=== PATIENT | female | born 1975 | race American Indian/Alaskan Native ===

== ENCOUNTER 2019-07-15 17:35 | Emergency (ER) | payer OTHER ==
[~2019-07-15] VITALS: Ht 162.6 cm; Wt 100.0 kg
[~2019-07-15 17:35] MED LIST: AZIT250T PO; LIDOcaine 1% 30ml preserv. free vial ONE; NO HOME MEDS; ONDA8TAB6 PO
[2019-07-15 18:05] VITALS: BP 135/89
[2019-07-15] MEDS ORDERED: cyclobenzaprine 10mg tablet PO ONE (19:55)
== END 2019-07-15 20:05 | disposition home or self-care (01) ==
LOC: ER 17:35
DX: S29.012A Strain of muscle and tendon of back wall of thorax, initial encounter (principal); Z90.710 Acquired absence of both cervix and uterus; Z98.890 Other specified postprocedural states; X50.1XXA Overexertion from prolonged static or awkward postures, initial encounter; Y93.89 Activity, other specified; Y92.89 Other specified places as the place of occurrence of the external cause; Y99.9 Unspecified external cause status
CPT/HCPCS: 20552; 93005; 99284; J2001

== ENCOUNTER 2021-10-13 09:31 | Outpatient (CLI) | payer OTHER ==
[~2021-10-13 09:31] MED LIST changes: -LIDOcaine 1% 30ml preserv. free vial ONE
[2021-10-13 10:12] LABS: BASOPHILS # (AUTO) 0.1 X10'3 (0-0.2); EOSINOPHILS # (AUTO) 0.2 X10'3 (0-0.9); EOSINOPHILS % (AUTO) 2.9 % (0-6); HEMATOCRIT 38.2 % (35.0-45.0); HEMOGLOBIN 12.7 g/dl (12.0-16.0); LYMPHOCYTES # (AUTO) 1.8 X10'3 (1.1-4.8); LYMPHOCYTES % (AUTO) 31.8 % (21-51); MEAN CORPUSCULAR HGB CONC 33.3 g/dL (33.0-36.5); MEAN CORPUSCULAR VOLUME 87.2 FL (78-98); MEAN PLATELET VOLUME 9.5 FL (7.4-10.4); MONOCYTES # (AUTO) 0.6 X10'3 (0-0.9); NEUTROPHILS # (AUTO) 3.1 X10'3 (1.8-7.7); NEUTROPHILS % (AUTO) 54.3 % (42-75); PLATELET COUNT 224 X10'3 (140-440); RED BLOOD COUNT 4.38 X10'6 (4.20-5.60); RED CELL DISTRIBUTION WIDTH 12.5 % (11.5-14.5); WHITE BLOOD COUNT 5.7 X10'3 (4.5-11.0)
[2021-10-13 10:31] LABS: CLARITY,URINE CLEAR (Clear); COLOR,URINE YELLOW (Yellow); GLUCOSE, URINE NEGATIVE (Neg); KETONES,URINE NEGATIVE (Neg); LEUKOCYTE ESTERASE ,URINE NEGATIVE (Neg); NITRITES, URINE NEGATIVE (Neg); OCCULT BLOOD,URINE NEGATIVE (Neg); PROTEIN,URINE NEGATIVE (Neg); UROBILINOGEN,URINE 0.2 E.U/dL (0.2-1.0)
[2021-10-13 10:37] LABS: UA COLLECTION TYPE NON-SPECIFIED
[2021-10-13 10:38] LABS: ALANINE AMINOTRANSFERASE 31 U/L (12-78); ALBUMIN 3.5 G/DL (3.4-5.0); ALBUMIN/GLOBULIN RATIO 1.2 (1.1-1.5); ALKALINE PHOSPHATASE 79 IU/L (46-116); ANION GAP 11 (8-16); ASPARTATE AMINO TRANSFERASE 16 U/L (10-37); BILIRUBIN,TOTAL 0.4 MG/DL (0.1-1.0); BLOOD UREA NITROGEN 21 MG/DL (7-18); BUN/CREATININE RATIO 31.3 (6.6-38.0); CALCIUM 8.3 MG/DL (8.5-10.1); CHLORIDE 105 MMOL/L (99-107); CHOL/HDL RATIO 3.8 (0.00-4.99); CHOLESTEROL 206 MG/DL (0-200); CREATININE 0.67 MG/DL (0.40-0.90); GLUCOSE 87 MG/DL (70-104); HDL CHOLESTEROL 54 MG/DL (35-60); LDL CHOLESTEROL 124 MG/DL (50-100); SODIUM 140 MMOL/L (135-145); TOTAL PROTEIN 6.5 G/DL (6.4-8.2); TRIGLYCERIDES 97 MG/DL (20-135); eGFR > 90 ML/MIN
== END 2021-10-13 23:59 | disposition home or self-care (01) ==
LOC: LAB SPEC 09:31
PROVIDERS: ATTEND Internal Medicine
DX: E89.0 Postprocedural hypothyroidism (principal); E83.51 Hypocalcemia; I89.0 Lymphedema, not elsewhere classified; E78.00 Pure hypercholesterolemia, unspecified; R53.82 Chronic fatigue, unspecified; L65.9 Nonscarring hair loss, unspecified; M19.141 Post-traumatic osteoarthritis, right hand; M19.142 Post-traumatic osteoarthritis, left hand; R45.86 Emotional lability
CPT/HCPCS: 36415; 80053; 80061; 81003; 82306; 82607; 82746; 84439; 84443; 85025; 85651

== ENCOUNTER 2022-09-16 08:04 | Outpatient (CLI) | payer BC | END 2022-09-16 23:59 | disposition home or self-care (01) | LOC: CARD DIAG 08:04 | PROVIDERS: ATTEND Family Medicine | DX: I34.81 Nonrheumatic mitral (valve) annulus calcification (principal); I47.1 Supraventricular tachycardia | CPT/HCPCS: 93306 ==

== ENCOUNTER 2022-11-10 00:37 | Inpatient (IN) | payer BC ==
[~2022-11-10] VITALS: Ht 162.6 cm; Wt 77.8 kg
[2022-11-10] MEDS ORDERED: ketorolac trometh. 30mg/ml inj. IV ONE (01:15)
[2022-11-10] MEDS ORDERED: fentaNYL/PF 50MCG/1 ML 2ML syringe IV ONE (01:15)
[2022-11-10] MEDS ORDERED: normal saline 1000ml 1,000 ML IV ONE ×3 (01:15→04:55)
[2022-11-10] MEDS ORDERED: ondansetron/PF 4mg/2ml inj IV ONE (01:15)
--- NOTE | 2022-11-10 01:36 | NUR ---
REC'D PT WITH AT BS, ON ALL MONITORS. 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 DENIES ANY DIFFICULTY WITH URINATION
[2022-11-10 01:39] LABS: APTT 24 SECONDS (22-32); BASOPHILS % (AUTO) 0.3 % (0-1); EOSINOPHILS % (AUTO) 0.4 % (0-6); HEMATOCRIT 39.3 % (35.0-45.0); HEMOGLOBIN 13.4 g/dl (12.0-16.0); LYMPHOCYTES # (AUTO) 0.4 X10'3 (1.1-4.8); LYMPHOCYTES % (AUTO) 9.4 % (21-51); MEAN CORPUSCULAR HEMOGLOBIN 30.4 PG (27.0-31.0); MEAN CORPUSCULAR HGB CONC 34.2 g/dL (33.0-36.5); MEAN PLATELET VOLUME 8.6 FL (7.4-10.4); MONOCYTES # (AUTO) 0.1 X10'3 (0-0.9); NEUTROPHILS # (AUTO) 3.3 X10'3 (1.8-7.7); NEUTROPHILS % (AUTO) 86.9 % (42-75); PLATELET COUNT 183 X10'3 (140-440); RED BLOOD COUNT 4.41 X10'6 (4.20-5.60); RED CELL DISTRIBUTION WIDTH 12.7 % (11.5-14.5); WHITE BLOOD COUNT 3.8 X10'3 (4.5-11.0)
[2022-11-10 01:42] LABS: ALANINE AMINOTRANSFERASE 41 U/L (12-78); ALBUMIN 3.5 G/DL (3.4-5.0); ALBUMIN/GLOBULIN RATIO 1.2 (1.1-1.5); ALKALINE PHOSPHATASE 78 IU/L (46-116); ANION GAP 10 (8-16); ASPARTATE AMINO TRANSFERASE 27 U/L (10-37); BILIRUBIN,TOTAL 0.5 MG/DL (0.1-1.0); BLOOD UREA NITROGEN 25 MG/DL (7-18); BUN/CREATININE RATIO 29.8 (10.0-20.0); CALCIUM 8.8 MG/DL (8.5-10.1); CHLORIDE 104 MMOL/L (99-107); CREATININE 0.84 MG/DL (0.40-0.90); GLUCOSE 117 MG/DL (70-104); POTASSIUM 4.2 MMOL/L (3.5-5.1); SODIUM 139 MMOL/L (135-145); TOTAL CARBON DIOXIDE 24.6 MMOL/L (24-32); TOTAL PROTEIN 6.5 G/DL (6.4-8.2); eGFR 72 ML/MIN
[2022-11-10 01:42] LABS: CLARITY,URINE CLEAR (Clear); COLOR,URINE YELLOW (Yellow); GLUCOSE, URINE NEGATIVE (Neg); KETONES,URINE NEGATIVE (Neg); LEUKOCYTE ESTERASE ,URINE NEGATIVE (Neg); NITRITES, URINE NEGATIVE (Neg); OCCULT BLOOD,URINE NEGATIVE (Neg); PROTEIN,URINE NEGATIVE (Neg); URINE HCG NEGATIVE (NEG); UROBILINOGEN,URINE 0.2 E.U/dL (0.2-1.0)
[2022-11-10 01:44] LABS: UA COLLECTION TYPE CLN CATCH MIDSTREAM
[2022-11-10 01:47] LABS: ETHANOL < 0.010 GM/DL (0.0-0.010)
[2022-11-10 02:19] LABS: URINE AMPHETAMINE SCREEN NEGATIVE (Neg); URINE BARBITUATE SCREEN NEGATIVE (Neg); URINE BENZODIAZEPINES SCREEN NEGATIVE (Neg); URINE CANNABINOID SCREEN NEGATIVE (Neg); URINE COCAINE SCREEN NEGATIVE (Neg); URINE METHADONE SCREEN NEGATIVE (Neg); URINE OPIATE SCREEN NEGATIVE (Neg); URINE PHENCYCLIDINE SCREEN NEGATIVE (Neg)
[2022-11-10] MEDS ORDERED: BISA-78 PO (03:41)
[2022-11-10] MEDS ORDERED: POLY119P2 PO (03:41)
--- NOTE | 2022-11-10 04:00 | NUR ---
DURING D/C OF PT, PT BECAME HYPOTENSIVE 88/56. PT ADDITIONALLY COMPLAINED OF DIAPHORESIS AND PALPITATIONS. STAT EKG OBTAINED. AWARE. PT NOW ON OBS
[2022-11-10] MEDS ORDERED: acetaminophen 325mg tablet PO ONE (04:55)
[2022-11-10] MEDS ORDERED: normal saline 1000ml 1,000 ML IV SCH (06:25)
[2022-11-10] MEDS ORDERED: potassium Cl 20 mEq SR tablet PO PRN ×2 (08:40)
[2022-11-10] MEDS ORDERED: magnesium 4gm in 100ml NS 100 ML IV PRN (08:40)
[2022-11-10] MEDS ORDERED: potassium Cl 40MEQ/1/2NS 520ml 520 ML IV PRN (08:40)
[2022-11-10] MEDS ORDERED: mag hydrox/Alum hydrox/simeth 30ml oral suspension PO PRN (08:40)
[2022-11-10] MEDS ORDERED: magnesium hydroxide 30ml (MOM) UD suspension PO PRN (08:40)
[2022-11-10] MEDS ORDERED: PERFLUTREN PROTEIN-A MICROSPHR (Optison) 0.22 MG/ML 3ML VIAL IV ONE (08:40)
[2022-11-10] MEDS ORDERED: magnesium 2GM in 50ml NS 50 ML IV PRN (08:40)
[2022-11-10] MEDS ORDERED: ondansetron/PF 4mg/2ml inj IV PRN (08:40)
[2022-11-10] MEDS: normal saline 1000ml 1,000 ML IV SCH ×3 (08:58→16:28)
--- NOTE | 2022-11-10 09:22 | NUR ---
FLOOR BED EXCHANGED FOR GURNEY PER PT REQUEST.
[2022-11-10 10:46] VITALS: BP 78/46
[2022-11-10] MEDS ORDERED: LEVO175T7 PO (13:37)
[2022-11-10] MEDS ORDERED: CALC0.5C8 PO (13:37)
--- NOTE | 2022-11-10 13:57 | NUR ---
PAGER ID: [phone] MESSAGE: Deuce [id number], Pt's last BP was 97/60 up from 78/50. Pt was up and walking, she feels tired. Her medrec doesn't show her Synthroid or Calcitrol. Manjinder [id number]
[2022-11-10] MEDS ORDERED: CALC600T61 PO (14:39)
[2022-11-10] MEDS ORDERED: CHOL100025 PO (14:39)
[2022-11-10] MEDS ORDERED: CALC600T22 PO ×2 (14:39→14:48)
[2022-11-10] MEDS: acetaminophen 325mg tablet PO PRN ×2 (14:53→21:20)
[2022-11-10 15:00] VITALS: BP 91/53
--- NOTE | 2022-11-10 15:33 | NUR ---
PAGER ID: [phone] MESSAGE: Deuce [id number], Pt's BP is at 91/53 and is asking if she cannot be NPO. She had a small amount of bright red blood in the toilet now, less than she had yesterday. Do you want her to eat and drink? Manjinder [id number]
[2022-11-10 18:00] VITALS: BP 90/63
[2022-11-10] MEDS: K and/or MAG REPLACEMENT MC SCH (19:19)
[2022-11-10] MEDS: docusate sod 100mg capsule PO SCH (19:19)
[2022-11-10] MEDS ORDERED: enoxaparin 40mg/0.4ml syringe SQ SCH (20:00)
[2022-11-10] MEDS: cholecalciferol (vitamin D3) 1,000 unit (25mcg) tablet PO SCH (21:17)
[2022-11-10] MEDS: calcium carbonate 500mg tablet PO SCH (21:17)
[2022-11-10 23:23] VITALS: BP 96/62
[2022-11-11] MEDS: normal saline 1000ml 1,000 ML IV SCH (02:34)
[2022-11-11 03:05] VITALS: BP 97/55
[2022-11-11] MEDS: calcium carbonate 500mg tablet PO SCH ×2 (05:29→20:18)
[2022-11-11] MEDS: levoTHYROXINE 175mcg tablet PO SCH (05:32)
[2022-11-11] MEDS: calcitriol 0.25mcg capsule PO SCH (05:32)
[2022-11-11] MEDS: acetaminophen 325mg tablet PO PRN ×2 (05:34→17:36)
[2022-11-11 06:00] VITALS: BP 114/79
[2022-11-11] MEDS ORDERED: calcium carbonate 500mg tablet PO SCH ×2 (06:00→12:00)
[2022-11-11 06:13] LABS: BASOPHILS % (AUTO) 0.4 % (0-1); EOSINOPHILS # (AUTO) 0.1 X10'3 (0-0.9); EOSINOPHILS % (AUTO) 0.7 % (0-6); HEMATOCRIT 32.9 % (35.0-45.0); LYMPHOCYTES # (AUTO) 1.2 X10'3 (1.1-4.8); LYMPHOCYTES % (AUTO) 15.2 % (21-51); MEAN CORPUSCULAR HEMOGLOBIN 30.3 PG (27.0-31.0); MEAN CORPUSCULAR HGB CONC 33.5 g/dL (33.0-36.5); MEAN CORPUSCULAR VOLUME 90.3 FL (78-98); MEAN PLATELET VOLUME 8.6 FL (7.4-10.4); MONOCYTES # (AUTO) 0.7 X10'3 (0-0.9); MONOCYTES % (AUTO) 9.3 % (2-12); NEUTROPHILS # (AUTO) 5.7 X10'3 (1.8-7.7); NEUTROPHILS % (AUTO) 74.4 % (42-75); PLATELET COUNT 155 X10'3 (140-440); RED BLOOD COUNT 3.65 X10'6 (4.20-5.60); RED CELL DISTRIBUTION WIDTH 13.2 % (11.5-14.5); WHITE BLOOD COUNT 7.6 X10'3 (4.5-11.0)
[2022-11-11 06:39] LABS: ALANINE AMINOTRANSFERASE 77 U/L (12-78); ALBUMIN 2.6 G/DL (3.4-5.0); ALKALINE PHOSPHATASE 56 IU/L (46-116); ANION GAP 9 (8-16); ASPARTATE AMINO TRANSFERASE 54 U/L (10-37); BILIRUBIN,TOTAL 0.3 MG/DL (0.1-1.0); BLOOD UREA NITROGEN 11 MG/DL (7-18); BUN/CREATININE RATIO 17.7 (10.0-20.0); CALCIUM 7.9 MG/DL (8.5-10.1); CHLORIDE 109 MMOL/L (99-107); CREATININE 0.62 MG/DL (0.40-0.90); GLUCOSE 89 MG/DL (70-104); MAGNESIUM 1.9 MG/DL (1.5-2.4); POTASSIUM 3.8 MMOL/L (3.5-5.1); SODIUM 142 MMOL/L (135-145); TOTAL CARBON DIOXIDE 24.2 MMOL/L (24-32); TOTAL PROTEIN 5.2 G/DL (6.4-8.2); eGFR > 90 ML/MIN
--- NOTE | 2022-11-11 06:55 | NUR ---
Patient in room PCU 3024. I have received report from Antoine LOPEZ and had the opportunity to ask questions and assume patient care.
[2022-11-11] MEDS ORDERED: levoTHYROXINE 175mcg tablet PO SCH (07:00)
[2022-11-11] MEDS: docusate sod 100mg capsule PO SCH ×2 (07:37→19:31)
--- NOTE | 2022-11-11 07:47 | NUR ---
PAGER ID: [phone] MESSAGE: [id number]- Dana Tripathi: Pt noted with moderate amount of blood in stool this morning. C/o headache APAP not effective, requesting excedrin? Please call when you have a chance Ty Kenya [phone] Addendum: 11/11/22 at 1242 by Kenya Song LVN 0800- Received verbal order to discontinue fluids, new order noted for norco 5/325 once for headache. MD consulted with GI MD, new order order noted for shilpa. Noted and carried out Addendum: 11/11/22 at 1243 by Kenya Song LVN 929- Patient declined norco 5/325 at this time, she stated "It's not really bad right now, I can handle it for now, maybe I'll try it later."
[2022-11-11] MEDS ORDERED: PEG 3350/Na sulf,bicarb,Cl/KCl oral sol 4 liter bottle PO ONE (07:55)
[2022-11-11] MEDS ORDERED: HYDROcodone/acetaminophen 10/325mg tab PO ONE (07:55)
[2022-11-11] MEDS ORDERED: calcitriol 0.25mcg capsule PO SCH (08:00)
[2022-11-11] MEDS: K and/or MAG REPLACEMENT MC SCH ×2 (08:00→19:32)
[2022-11-11] MEDS ORDERED: HYDROcodone/acetaminophen 5mg/325mg tablet PO ONE (09:00)
[2022-11-11 10:00] VITALS: BP 116/81
[2022-11-11 15:00] VITALS: BP 117/81
--- NOTE | 2022-11-11 17:31 | NUR ---
DIGITAL MARKETING COORDINATOR documentation: I have reviewed and agree with all interventions, assessments performed and documented by ALEXIS ARELLANO LVN.
[2022-11-11 18:00] VITALS: BP 115/73
[2022-11-11] MEDS: cholecalciferol (vitamin D3) 1,000 unit (25mcg) tablet PO SCH (20:18)
[2022-11-11 22:56] VITALS: BP 98/59
[2022-11-12 02:20] VITALS: BP 97/66
[2022-11-12] MEDS: calcitriol 0.25mcg capsule PO SCH (05:44)
[2022-11-12] MEDS: levoTHYROXINE 175mcg tablet PO SCH (05:44)
[2022-11-12] MEDS: acetaminophen 325mg tablet PO PRN ×2 (05:45→14:01)
[2022-11-12] MEDS: calcium carbonate 500mg tablet PO SCH (05:46)
--- NOTE | 2022-11-12 06:26 | NUR ---
Patient in room PCU 3024. I have received report from mayito beasley and had the opportunity to ask questions and assume patient care.
[2022-11-12 06:36] LABS: ALANINE AMINOTRANSFERASE 67 U/L (12-78); ALBUMIN/GLOBULIN RATIO 1.1 (1.1-1.5); ALKALINE PHOSPHATASE 59 IU/L (46-116); ANION GAP 10 (8-16); ASPARTATE AMINO TRANSFERASE 29 U/L (10-37); BILIRUBIN,TOTAL 0.4 MG/DL (0.1-1.0); BLOOD UREA NITROGEN 5 MG/DL (7-18); BUN/CREATININE RATIO 8.1 (10.0-20.0); CHLORIDE 106 MMOL/L (99-107); CREATININE 0.62 MG/DL (0.40-0.90); GLUCOSE 83 MG/DL (70-104); MAGNESIUM 2.1 MG/DL (1.5-2.4); POTASSIUM 3.6 MMOL/L (3.5-5.1); SODIUM 142 MMOL/L (135-145); TOTAL CARBON DIOXIDE 26.3 MMOL/L (24-32); TOTAL PROTEIN 5.8 G/DL (6.4-8.2); eGFR > 90 ML/MIN
[2022-11-12 06:38] LABS: BASOPHILS % (AUTO) 0.8 % (0-1); EOSINOPHILS # (AUTO) 0.1 X10'3 (0-0.9); EOSINOPHILS % (AUTO) 1.6 % (0-6); HEMATOCRIT 35.8 % (35.0-45.0); HEMOGLOBIN 12.1 g/dl (12.0-16.0); LYMPHOCYTES % (AUTO) 25.2 % (21-51); MEAN CORPUSCULAR HEMOGLOBIN 30.3 PG (27.0-31.0); MEAN CORPUSCULAR HGB CONC 33.9 g/dL (33.0-36.5); MEAN CORPUSCULAR VOLUME 89.6 FL (78-98); MEAN PLATELET VOLUME 9.1 FL (7.4-10.4); MONOCYTES # (AUTO) 0.4 X10'3 (0-0.9); NEUTROPHILS # (AUTO) 2.5 X10'3 (1.8-7.7); NEUTROPHILS % (AUTO) 61.4 % (42-75); PLATELET COUNT 189 X10'3 (140-440); RED BLOOD COUNT 3.99 X10'6 (4.20-5.60); RED CELL DISTRIBUTION WIDTH 12.9 % (11.5-14.5); WHITE BLOOD COUNT 4.1 X10'3 (4.5-11.0)
[2022-11-12] MEDS: docusate sod 100mg capsule PO SCH (06:53)
[2022-11-12] MEDS: K and/or MAG REPLACEMENT MC SCH (07:00)
[2022-11-12 07:12] VITALS: BP 117/75
[2022-11-12 11:00] VITALS: BP 113/79
[2022-11-12] MEDS ORDERED: diazepam 5mg tablet PO ONE (13:35)
[2022-11-12] MEDS ORDERED: baclofen 10mg tablet PO PRN (13:35)
[2022-11-12 15:00] VITALS: BP 124/74
--- NOTE | 2022-11-12 17:20 | NUR ---
PAGER ID: [phone] MESSAGE: JOSEPH CORTÉS. PT DECIDED NOT TO WAIT FOR COLONOSCOPY. PT WILL BE DISCHARGED PER ORDER. JUNIE [id number]
--- NOTE | 2022-11-12 17:46 | NUR ---
PT DISCHARGED IN STABLE CONDITION. LEFT FACILITY IN PRIVATE VEHICLE WITH . IV DC CANULA INTACT. FOLLOW UP INSTRUCTIONS GIVEN, ALL QUESTIONS ANSWERED. PT WAS TO HAVE COLONOSCOPY THIS AFTERNOON, PT DIDNT FEEL SHE COULD WAIT ANY LONGER SHE HAS BEEN WAITING ALL DAY. GI LAB WAS WAITING ON MD. NOTIFIED DR YUEN. HE WAS AGREEABLE THAT PT WAS OK TO DC HOME AND FOLLOW UP WITH COLONOSCOPY OUTPT. PT STATES SHE WILL FOLLOW UP WITH PCP AND HE WILL SET IT UP FOR HER. Addendum: 11/12/22 at 1749 by Phyllis Dunbar RN Amended: Links added.
== END 2022-11-12 17:40 | disposition home or self-care (01) | DRG 315 ==
LOC: ER 00:37 → ED HOLD 08:53 → PCU 3S 10:15 → OBSVTOIN 14:07
PROVIDERS: ADMIT Family Medicine; ATTEND Family Medicine
DX: I95.9 Hypotension, unspecified (principal); I47.1 Supraventricular tachycardia; K92.1 Melena; E89.0 Postprocedural hypothyroidism; K59.00 Constipation, unspecified; Z80.7 Family history of other malignant neoplasms of lymphoid, hematopoietic and related tissues; Z83.3 Family history of diabetes mellitus; Z85.41 Personal history of malignant neoplasm of cervix uteri; Z85.850 Personal history of malignant neoplasm of thyroid; Z87.891 Personal history of nicotine dependence; Z90.710 Acquired absence of both cervix and uterus; Z79.899 Other long term (current) drug therapy
CPT/HCPCS: 36415; 71045; 74176; 80053; 80305; 80320; 81003; 81025; 83605; 83735; 84145; 84439; 84443; 85025; 85610; 85730; 86885; 86900; 86901; 87040; 87081; 93308; 99285; G0378; J1885; J2405; J3010; J7030

== ENCOUNTER 2023-12-30 14:10 | Emergency (ER) | payer BC ==
[~2023-12-30] VITALS: Ht 162.6 cm; Wt 79.1 kg
[~2023-12-30 14:10] MED LIST changes: -AZIT250T PO; +CALC0.5C8 PO; +CALC600T22 PO; +CHOL100025 PO; +LEVO175T7 PO; -NO HOME MEDS; -ONDA8TAB6 PO
[2023-12-30] MEDS: ondansetron/PF 4mg/2ml inj IV ONE (14:37)
[2023-12-30] MEDS: morphine 4 MG/ML inj SYRINge IV ONE ×2 (14:39→15:37)
[2023-12-30] MEDS: normal saline 1000ML IV soln IVB ONE ×2 (14:39→16:30)
[2023-12-30 14:52] LABS: EOSINOPHILS % (AUTO) 0.5 % (0-6); NEUTROPHILS # (AUTO) 4.5 X10'3 (1.8-7.7)
[2023-12-30 14:54] LABS: BASOPHILS % (AUTO) 0.6 % (0-1); HEMATOCRIT 42.9 % (35.0-45.0); HEMOGLOBIN 14.3 g/dl (12.0-16.0); LYMPHOCYTES # (AUTO) 1.4 X10'3 (1.1-4.8); LYMPHOCYTES % (AUTO) 21.8 % (21-51); MEAN CORPUSCULAR HEMOGLOBIN 29.9 PG (27.0-31.0); MEAN CORPUSCULAR HGB CONC 33.5 g/dL (33.0-36.5); MEAN CORPUSCULAR VOLUME 89.2 FL (78-98); MEAN PLATELET VOLUME 8.9 FL (7.4-10.4); MONOCYTES # (AUTO) 0.6 X10'3 (0-0.9); MONOCYTES % (AUTO) 9.5 % (2-12); NEUTROPHILS % (AUTO) 67.6 % (42-75); PLATELET COUNT 235 X10'3 (140-440); RED BLOOD COUNT 4.81 X10'6 (4.20-5.60); RED CELL DISTRIBUTION WIDTH 12.3 % (11.5-14.5); WHITE BLOOD COUNT 6.6 X10'3 (4.5-11.0)
[2023-12-30 15:02] LABS: ALANINE AMINOTRANSFERASE 29 U/L (12-78); ALBUMIN/GLOBULIN RATIO 1.2 (1.1-1.5); ALKALINE PHOSPHATASE 59 IU/L (46-116); ANION GAP 12 (8-16); ASPARTATE AMINO TRANSFERASE 13 U/L (10-37); BILIRUBIN,TOTAL 0.6 MG/DL (0.1-1.0); BLOOD UREA NITROGEN 20 MG/DL (7-18); BUN/CREATININE RATIO 25.3 (10.0-20.0); CALCIUM 9.3 MG/DL (8.5-10.1); CHLORIDE 102 MMOL/L (99-107); CREATININE 0.79 MG/DL (0.40-0.90); GLUCOSE 107 MG/DL (70-104); LIPASE 40 U/L (16-77); POTASSIUM 3.7 MMOL/L (3.5-5.1); SODIUM 138 MMOL/L (135-145); TOTAL CARBON DIOXIDE 24.4 MMOL/L (24-32); TOTAL PROTEIN 7.3 G/DL (6.4-8.2); eCRCL 74 ML/MIN; eGFR 77 ML/MIN
[2023-12-30] MEDS ORDERED: iohexol 300mg/ml 100ml inj. ONE (15:07)
[2023-12-30 16:34] LABS: BILIRUBIN,URINE NEGATIVE (Neg); CLARITY,URINE SLIGHTLY CLOUDY (Clear); COLOR,URINE YELLOW (Yellow); GLUCOSE, URINE NEGATIVE (Neg); KETONES,URINE 15 mg/dl (Neg); LEUKOCYTE ESTERASE ,URINE NEGATIVE (Neg); NITRITES, URINE NEGATIVE (Neg); OCCULT BLOOD,URINE NEGATIVE (Neg); PH,URINE 7.5 (4.8-8.0); PROTEIN,URINE NEGATIVE (Neg); UA COLLECTION TYPE CLN CATCH MIDSTREAM; UROBILINOGEN,URINE 0.2 E.U/dL (0.2-1.0)
[2023-12-30 16:41] LABS: AMORPHOUS URATES 2+; BACTERIA,URINE FEW /HPF (Neg); MUCUS STRANDS NONE SEEN /LPF (Neg); RBC,URINE NONE SEEN /HPF (0-2); SQUAMOUS EPITHELIAL CELL,UR FEW /LPF (FEW); WBC,URINE 0-4 /HPF (0-4)
[2023-12-30] MEDS: mag hydrox/Alum hydrox/simeth 30ml oral suspension PO ONE (16:49)
[2023-12-30 16:51] LABS: URINE HCG NEGATIVE (NEG)
[2023-12-30] MEDS: LORazepam 2 mg/ml vial IV ONE ×2 (17:52→19:13)
[2023-12-30] MEDS: dexamethasone sod phosphate 10mg/ml inj IV STA (17:53)
[2023-12-30] MEDS ORDERED: LORA-269 PO ×2 (19:08→19:09)
[2023-12-30 19:33] VITALS: BP 116/77; PULSE 76; RESP 23; TEMP 98.7; O2SAT 98
== END 2023-12-30 19:37 | disposition home or self-care (01) ==
LOC: ER 14:11
DX: R10.84 Generalized abdominal pain (principal); Z88.8 Allergy status to other drugs, medicaments and biological substances; Z79.899 Other long term (current) drug therapy; Z85.9 Personal history of malignant neoplasm, unspecified; Z90.710 Acquired absence of both cervix and uterus; Z98.890 Other specified postprocedural states
CPT/HCPCS: 36415; 74178; 80053; 81001; 81025; 83690; 85025; 93005; 96361; 96374; 96375; 96376; 99285; J1100; J2060; J2270; J2405; J7030; Q9967

== ENCOUNTER 2024-04-24 11:19 | Emergency (ER) | payer BC ==
[~2024-04-24] VITALS: Ht 162.6 cm; Wt 77.3 kg
[~2024-04-24 11:19] MED LIST changes: +LORA-269 PO
[2024-04-24 11:45] LABS: BASOPHILS % (AUTO) 0.7 % (0-1); EOSINOPHILS # (AUTO) 0.1 X10'3 (0-0.9); EOSINOPHILS % (AUTO) 1.1 % (0-6); HEMATOCRIT 40.3 % (35.0-45.0); HEMOGLOBIN 13.4 g/dl (12.0-16.0); LYMPHOCYTES # (AUTO) 1.9 X10'3 (1.1-4.8); LYMPHOCYTES % (AUTO) 34.6 % (21-51); MEAN CORPUSCULAR HGB CONC 33.2 g/dL (33.0-36.5); MEAN CORPUSCULAR VOLUME 90.4 FL (78-98); MEAN PLATELET VOLUME 8.7 FL (7.4-10.4); MONOCYTES # (AUTO) 0.6 X10'3 (0-0.9); MONOCYTES % (AUTO) 11.9 % (2-12); NEUTROPHILS # (AUTO) 2.8 X10'3 (1.8-7.7); NEUTROPHILS % (AUTO) 51.7 % (42-75); PLATELET COUNT 205 X10'3 (140-440); RED BLOOD COUNT 4.46 X10'6 (4.20-5.60); RED CELL DISTRIBUTION WIDTH 12.9 % (11.5-14.5); WHITE BLOOD COUNT 5.4 X10'3 (4.5-11.0)
[2024-04-24 12:00] LABS: ALANINE AMINOTRANSFERASE 19 U/L (12-78); ALBUMIN 3.4 G/DL (3.4-5.0); ALBUMIN/GLOBULIN RATIO 1.1 (1.1-1.5); ALKALINE PHOSPHATASE 65 IU/L (46-116); ANION GAP 8 (8-16); ASPARTATE AMINO TRANSFERASE 8 U/L (10-37); BILIRUBIN,TOTAL 0.3 MG/DL (0.1-1.0); BLOOD UREA NITROGEN 21 MG/DL (7-18); CALCIUM 8.2 MG/DL (8.5-10.1); CHLORIDE 103 MMOL/L (99-107); GLUCOSE 93 MG/DL (70-104); POTASSIUM 3.6 MMOL/L (3.5-5.1); SODIUM 139 MMOL/L (135-145); TOTAL CARBON DIOXIDE 28.4 MMOL/L (24-32); TOTAL PROTEIN 6.6 G/DL (6.4-8.2); eCRCL 83 ML/MIN; eGFR 89 ML/MIN
[2024-04-24 12:10] LABS: PRO BRAIN NATRIURETIC PEPTIDE 79 PG/ML (0-125)
[2024-04-24] MEDS: ketorolac trometh 15mg/ml vial 15 MG/ML ML IV ONE (15:54)
[2024-04-24 16:01] VITALS: BP 109/82; PULSE 62; RESP 16; TEMP 98; O2SAT 100
== END 2024-04-24 16:00 | disposition home or self-care (01) ==
LOC: ER 11:19
DX: R07.89 Other chest pain (principal); I49.9 Cardiac arrhythmia, unspecified; Z88.5 Allergy status to narcotic agent; Z79.899 Other long term (current) drug therapy; Z85.41 Personal history of malignant neoplasm of cervix uteri; Z90.710 Acquired absence of both cervix and uterus
CPT/HCPCS: 36415; 71045; 80053; 83880; 84484; 85025; 93005; 96374; 99285; J1885; J7030

== ENCOUNTER 2024-07-25 15:58 | Outpatient (CLI) | payer BC | END 2024-07-25 23:59 | disposition home or self-care (01) | LOC: RAD 15:58 | PROVIDERS: ATTEND Internal Medicine | DX: S46.011A Strain of muscle(s) and tendon(s) of the rotator cuff of right shoulder, initial encounter (principal); M25.411 Effusion, right shoulder; X58.XXXA Exposure to other specified factors, initial encounter; Y93.89 Activity, other specified; Y92.89 Other specified places as the place of occurrence of the external cause; Y99.8 Other external cause status | CPT/HCPCS: 73030 ==

== ENCOUNTER 2024-09-21 06:17 | Outpatient (CLI) | payer BC ==
[~2024-09-21 06:17] MED LIST changes: +BUPIVAcaine 0.5% inj/PF 30 ML ONE; +BUPIVAcaine 2.5mg/ml inj 50ml vial (contains preservative) ONE
[2024-09-21] MEDS ORDERED: LIDOcaine 1% 30ml preserv. free vial ONE (06:41)
[2024-09-21] MEDS ORDERED: iohexol 300 MG/1 ML 50ml polymer ONE (06:41)
[2024-09-21] MEDS ORDERED: GADOTERATE MEGLUMINE 7.5 MMOL/15 ML VIAL IV ONE (06:41)
[2024-09-21] MEDS ORDERED: LIDOcaine 1%/PF 5ML 10 MG/ML VIAL ONE (06:41)
== END 2024-09-21 23:59 | disposition home or self-care (01) ==
LOC: RAD 06:17
PROVIDERS: ATTEND Family Medicine Sports Medicine
DX: M25.511 Pain in right shoulder (principal); S46.011A Strain of muscle(s) and tendon(s) of the rotator cuff of right shoulder, initial encounter; X58.XXXA Exposure to other specified factors, initial encounter; Y93.89 Activity, other specified; Y92.89 Other specified places as the place of occurrence of the external cause; Y99.8 Other external cause status
CPT/HCPCS: 23350; 73222; 77002; A9575; J2003; J3490; Q9967

== ENCOUNTER 2024-09-21 06:26 | Outpatient (CLI) | payer BC ==
[~2024-09-21 06:26] MED LIST changes: -BUPIVAcaine 0.5% inj/PF 30 ML ONE; -BUPIVAcaine 2.5mg/ml inj 50ml vial (contains preservative) ONE
== END 2024-09-21 23:59 | disposition home or self-care (01) ==
LOC: RAD 06:26
PROVIDERS: ATTEND Internal Medicine Endocrinology, Diabetes & Metabolism
DX: C73 Malignant neoplasm of thyroid gland (principal); R59.1 Generalized enlarged lymph nodes; M25.522 Pain in left elbow; M25.511 Pain in right shoulder
CPT/HCPCS: 73222; 76536